=== PATIENT | female | born 1985 ===

== ENCOUNTER 2016-10-23 17:57 | Emergency (ER) | payer BC, OTHER ==
[2016-10-23 18:30] VITALS: BMI 29.2
[2016-10-23 18:35] VITALS: RESP 18; TEMP 98
[2016-10-23 19:38] LABS: RBC URINE 1 /hpf (0-3); URINE BACTERIA RARE (<OCC); URINE BILIRUBIN NEGATIVE (NEGATIVE); URINE BLOOD NEGATIVE (NEGATIVE); URINE COLOR Yellow (YELLOW); URINE GLUCOSE (UA) NORMAL (Normal); URINE KETONE NEGATIVE (NEGATIVE); URINE LEUKOCYTE ESTERASE NEG Leu/uL (Negative); URINE PROTEIN NEGATIVE (NEGATIVE); WBC URINE 2 /hpf (0-5)
--- NOTE | 2016-10-23 20:10 | C.PDOC ---
History Of Present Illness 31 yo female come in for evaluation of Left pelvic pain gradually developed for past 3 days after IUD placed by PERSONAL CAREGIVER. Pt reports, pain is localized with intermittent radiation to Left hip area. Pt sts, " I never had this pain before , developed after IUD was placed". pt request IUD to be removed. Otherwise, pt denies fever, chills, abd. pain, N/V/D, back pain, UTI sx, vaginal discharge. Ambulate to ED for evaluation, not in any apparent distress. Time Seen by Provider: 10/23/16 18:46 Chief Complaint (Nursing): Female Genitourinary History Per: Patient History/Exam Limitations: no limitations Onset/Duration Of Symptoms: Days (3) Current Symptoms Are (Timing): Still Present Past Medical History Reviewed: Historical Data, Nursing Documentation, Vital Signs Vital Signs: Last Vital Signs Temp 98.0 F 10/23/16 18:29 Pulse 75 10/23/16 20:23 Resp 18 10/23/16 20:23 BP 110/68 10/23/16 20:23 Pulse Ox 99 10/23/16 20:26 - Medical History PMH: Anemia, Asthma - [facility] Procedures DELIVERY OF PRODUCTS OF CONCEPTION, EXTERNAL APPROACH (07/08/15) INTRODUCTION OF SERUM/TOX/VACCINE INTO MUSCLE, PERC APPROACH (07/08/15) MONITORING OF POC, CARDIAC RATE, HARDNESS INSPECTOR APPROACH (07/08/15) Family History: States: No Known Family Hx - Social History Hx Tobacco Use: No Hx Alcohol Use: Yes Hx Substance Use: No - Immunization History Hx Tetanus Toxoid Vaccination: No Hx Influenza Vaccination: No Hx Pneumococcal Vaccination: No Review Of Systems Except As Marked, All Systems Reviewed And Found Negative. Constitutional: Negative for: Fever, Chills Gastrointestinal: Negative for: Nausea, Vomiting, Abdominal Pain, Diarrhea Genitourinary: Positive for: Pelvic Pain (Left pelvic pain ). Negative for: Vaginal Discharge Musculoskeletal: Negative for: Back Pain Physical Exam - Physical Exam Appears: Well, Non-toxic, No Acute Distress Skin: Warm, No Rash Throat: Normal Neck: Normal, Normal ROM, Supple Gastrointestinal/Abdominal: Normal Exam, Soft, No Tenderness, No Distention, No Guarding Back: Normal Inspection, No CVA Tenderness Pelvic: No Vaginal Bleeding, Vaginal Discharge (copious yellow discharge with (+ ) fishy odor), No Cervical Motion Tenderness, Other ((+)strings from IUD noted) Extremity: Normal ROM, No Pedal Edema Neurological/Psych: Oriented x3, Normal Speech ED Course And Treatment O2 Sat by Pulse Oximetry: 99 Pulse Ox Interpretation: Normal Progress Note: On re-evaluation, pt is afebrile, hemodynamicaly stable. NOn- toxic. Tolerate Po well in ED. ENT: no acute findings. ABd: benign, (-) guarding, (-) rebound, (-) localized tenderness. Pelvic: exam c/w vaginitis. UA results review and appears normal. OB-PERSONAL CAREGIVER nuclear weapons specialist called and evaluated pt, IUD removed. Parent advised on course of ds. ref. to F/U with PERSONAL CAREGIVER in 2-3 days for re-eavl. return if any new changes. Medical Decision Making Medical Decision Making: PLAN: * HCG Urine * Urinalysis Disposition Counseled Patient/Family Regarding: Studies Performed, Diagnosis, Need For Followup, Rx Given - [facility]position [facility] Disposition: HOME/ ROUTINE Disposition Time: 20:07 Condition: GOOD Additional Instructions: Follow up with PERSONAL CAREGIVER in 2-3 days for re-evaluation. Return to Ed if any worsening or new changes. Prescriptions: metroNIDAZOLE 0.75% [Metrogel Cream] 1 applic VAG HS #1 tube Ibuprofen [Motrin] 600 mg PO Q6 #20 tab Instructions: Pelvic Pain in Women (ED), Vaginitis (ED) Forms: Work/School/Gym Excuse - Clinical Impression Clinical Impression: Pelvic pain, Encounter for IUD removal, Vaginitis - PA / TECHNICAL PROGRAM MANAGER / Resident Statement MD/DO has reviewed & agrees with the documentation as recorded. - Scribe Statement The provider has reviewed the documentation as recorded by the Scribe Ivy Lam All medical record entries made by the Kristineibchristie were at my direction and personally dictated by me. I have reviewed the chart and agree that the record accurately reflects my personal performance of the history, physical exam, medical decision making, and the department course for this patient. I have also personally directed, reviewed, and agree with the discharge instructions and disposition.
--- NOTE | 2016-10-23 20:11 | CP.PCM.CON ---
History of Present Illness - History of Present Illness History of Present Illness: 31 yr came here with c/o left sideed pain starteed 3 days ago after iud was placed. pt req to be out, no vb,no other com. obhx 4 x pmh denies med pnv all nkda psh denies soch deies ssse therad visuaised afer informed cosent sterile speculum inserted. thread visualised. iud removed with ring forcep. showed to pateint Review of Systems - Gastrointestinal Gastrointestinal: Abdominal Pain Past Patient History - Infectious Disease Hx of Infectious Diseases: None - Past Social History Smoking Status: Never Smoked - PULMONARY Hx Asthma: Yes - HEMATOLOGICAL/ONCOLOGICAL Hx Anemia: Yes - PSYCHIATRIC Hx Substance Use: No - SURGICAL HISTORY Hx Surgeries: No - ANESTHESIA Hx Anesthesia: No Meds Allergies/Adverse Reactions: Allergies Allergy/AdvReac Type Severity Reaction Status Date / Time No Known Allergies Allergy Verified 10/23/16 18:28 Physical Exam - Exam External exam: NORMAL EXTERNAL EXAM Speculum exam: NORMAL SPECULUM EXAM (thread visualised) Results - Vital Signs Recent Vital Signs: Last Vital Signs Temp 98.0 F 10/23/16 18:29 Pulse 72 10/23/16 18:29 Resp 18 10/23/16 18:29 BP 111/73 10/23/16 18:29 Pulse Ox 99 10/23/16 18:29 - Labs Labs: Laboratory Results - last 24 hr 10/23/16 19:23 Urine Color Yellow Urine Clarity Hazy Urine pH 7.0 Ur Specific Rupert 1.021 Urine Protein Negative Urine Glucose (UA) Normal Urine Ketones Negative Urine Blood Negative Urine Nitrate Negative Urine Bilirubin Negative Urine Urobilinogen 2.0 H Ur Leukocyte Esterase Neg Urine WBC (Auto) 2 Urine RBC (Auto) 1 Ur Squamous Epith Cells 2 Urine Bacteria Rare Urine HCG, Qual Negative Assessment & Plan - Assessment and Plan (Free Text) Assessment: 31 yr with pelvic pain after iud Plan: plan iud removed. david mcgeen f/u in clinic for depo shot pt underatsnd and agrees - Date & Time Date: 10/23/16 Time: 18:30
[2016-10-23 20:24] VITALS: BP 110/68; PULSE 75
[2016-10-23 20:26] VITALS: O2SAT 99
== END 2016-10-23 20:25 | disposition home or self-care (01) ==
LOC: C.ER 17:57
DX: Z30.432 Encounter for removal of intrauterine contraceptive device (principal); N76.0 Acute vaginitis

== ENCOUNTER 2016-12-09 09:11 | Emergency (ER) | payer BC, OTHER ==
[2016-12-09 09:22] VITALS: BMI 28.8
[2016-12-09 09:24] VITALS: TEMP 98.2
--- NOTE | 2016-12-09 09:41 | C.PDOC ---
History Of Present Illness A 31 year old female presents to the emergency room with complaints of right ankle pain s/p a mechanical fall prior to arrival. Patient reports that she tripped down the stairs at home and twisted her right ankle. Patient came directly to the ER. Patient notes that she was unable to bear any weight on it. Patient denies any head trauma/LOC, sensory changes, numbness, weakness, or any other complaints. Time Seen by Provider: 12/09/16 09:31 Chief Complaint (Nursing): Lower Extremity Problem/Injury History Per: Patient History/Exam Limitations: no limitations Onset/Duration Of Symptoms: Hrs Current Symptoms Are (Timing): Still Present Severity: Mild Recent travel outside of the [place]: No - Ankle/Foot Description Of Injury: Fell, Twisted Currently Unable To: Bear Weight Past Medical History Reviewed: Historical Data, Nursing Documentation, Vital Signs Vital Signs: Last Vital Signs Temp 98.2 F 12/09/16 09:22 Pulse 84 12/09/16 09:22 Resp 16 12/09/16 09:22 BP 114/77 12/09/16 09:22 Pulse Ox 100 12/09/16 10:46 - Medical History PMH: Anemia, Asthma - [facility] Procedures DELIVERY OF PRODUCTS OF CONCEPTION, EXTERNAL APPROACH (07/08/15) INTRODUCTION OF SERUM/TOX/VACCINE INTO MUSCLE, PERC APPROACH (07/08/15) MONITORING OF POC, CARDIAC RATE, CHANGE MANAGEMENT CONSULTANT APPROACH (07/08/15) Family History: States: Unknown Family Hx - Social History Hx Tobacco Use: No Hx Alcohol Use: Yes Hx Substance Use: No - Immunization History Hx Tetanus Toxoid Vaccination: Yes Hx Influenza Vaccination: No Hx Pneumococcal Vaccination: No Review Of Systems Except As Marked, All Systems Reviewed And Found Negative. Constitutional: Negative for: Fever, Chills Gastrointestinal: Negative for: Nausea, Vomiting, Diarrhea Musculoskeletal: Positive for: Other (Right ankle pain) Neurological: Negative for: Weakness, Numbness Physical Exam - Physical Exam Appears: Well, Non-toxic Skin: Normal Color, Warm, Dry, No Rash Head: Atraumatic, Normacephalic Extremity: Normal ROM (Pain with full ROM), Tenderness (Tendernes to anterior right ankle), No Pedal Edema, No Calf Tenderness, Capillary Refill (less than 2 sec), No Deformity, No Swelling, Other (DP pulses normal. Normal strength. Normal sensation. ) Extremity: Bilateral: Normal Color And Temperature, Normal ROM Pulses: Left Dorsalis Pedis: Normal, Right Dorsalis Pedis: Normal Neurological/Psych: Oriented x3, Normal Speech, Normal Cognition, Normal Motor, Normal Sensation ED Course And Treatment O2 Sat by Pulse Oximetry: 100 - Other Rad Right Ankle X-ray X-Ray: Viewed By Me, Read By Radiologist Interpretation: PROCEDURE: Right Ankle Radiographs. HISTORY: . COMPARISON: None. FINDINGS: BONES: Normal. No fracture. JOINTS: Normal. No osteoarthritis. Ankle mortise maintained. Talar dome intact. SOFT TISSUES: Normal. OTHER FINDINGS: None. IMPRESSION: Normal right ankle radiographs. Medical Decision Making Medical Decision Making: JOÃO wrap crutches NSAID f/u w pcp in 1 week, repeat xray if pain persists Disposition - Disposition Disposition: HOME/ ROUTINE Disposition Time: 10:45 Condition: STABLE Additional Instructions: Please follow up with your doctor in 1 week for a re-check. If your are still having pain you may need a repeat xray. Do not bear weight on your right leg for 2 days, then attempt to bear weight as tolerated. Return to the ER for any worsening symptoms or for any other concerns. Prescriptions: Naproxen [Naprosyn] 500 mg PO Q12H PRN #10 tablet PRN Reason: Pain, Moderate (4-7) Instructions: Ankle Sprain (ED) Forms: General Discharge Instructions, Work Excuse - Clinical Impression Clinical Impression: Ankle sprain - Scribe Statement The provider has reviewed the documentation as recorded by the Kristineibchirstie Petersen All medical record entries made by the Kristineibchristie were at my direction and personally dictated by me. I have reviewed the chart and agree that the record accurately reflects my personal performance of the history, physical exam, medical decision making, and the department course for this patient. I have also personally directed, reviewed, and agree with the discharge instructions and disposition.
--- NOTE | 2016-12-09 10:38 | RAD ---
PROCEDURE: Right Ankle Radiographs. HISTORY: COMPARISON: None FINDINGS: BONES: Normal. No fracture. JOINTS: Normal. No osteoarthritis. Ankle mortise maintained. Talar dome intact SOFT TISSUES: Normal. OTHER FINDINGS: None. IMPRESSION: Normal right ankle radiographs.
[2016-12-09 11:12] VITALS: BP 119/65; PULSE 72; RESP 18; O2SAT 98
== END 2016-12-09 11:15 | disposition home or self-care (01) ==
LOC: C.ER 09:11
DX: S93.401A Sprain of unspecified ligament of right ankle, initial encounter (principal); W10.8XXA Fall (on) (from) other stairs and steps, initial encounter; Y92.008 Other place in unspecified non-institutional (private) residence as the place of occurrence of the external cause
CPT/HCPCS: 73610; 97116; 97161; 99285; G8978; G8979; G8980

== ENCOUNTER 2017-04-12 21:14 | Emergency (ER) | payer BC, OTHER ==
[2017-04-12 21:14] VITALS: BMI 28.8
[2017-04-12 21:33] VITALS: RESP 20; O2SAT 98
--- NOTE | 2017-04-12 21:55 | C.PDOC ---
History Of Present Illness 32 year old female who presents to the ER with a complaint pain, swelling, and redness to the left lower leg after being bitten by an insect 3 days ago. Patient report she has not taken anything for the pain; denies fever or drainage. Time Seen by Provider: 04/12/17 21:39 Chief Complaint (Nursing): Lower Extremity Problem/Injury History Per: Patient History/Exam Limitations: no limitations Onset/Duration Of Symptoms: Days Current Symptoms Are (Timing): Still Present Location Of Injury: Left: Leg Quality Of Symptoms: Painful, Swollen, Other (Redness). denies: Draining Recent travel outside of the [place]: No Past Medical History Reviewed: Historical Data, Nursing Documentation, Vital Signs Vital Signs: Last Vital Signs Temp 98.7 F 04/12/17 21:53 Pulse 88 04/12/17 21:53 Resp 20 04/12/17 21:53 BP 118/73 04/12/17 21:53 Pulse Ox 98 04/13/17 00:25 - Medical History PMH: Anemia, Asthma Surgical History: No Surg Hx - [facility] Procedures DELIVERY OF PRODUCTS OF CONCEPTION, EXTERNAL APPROACH (07/08/15) INTRODUCTION OF SERUM/TOX/VACCINE INTO MUSCLE, PERC APPROACH (07/08/15) MONITORING OF POC, CARDIAC RATE, MIXER FOAM RUBBER APPROACH (07/08/15) Family History: States: Unknown Family Hx - Social History Hx Tobacco Use: No Hx Alcohol Use: Yes Hx Substance Use: No - Immunization History Hx Tetanus Toxoid Vaccination: Yes Hx Influenza Vaccination: No Hx Pneumococcal Vaccination: No Review Of Systems Constitutional: Negative for: Fever Skin: Positive for: Other (Insect bite) Neurological: Negative for: Weakness, Numbness Physical Exam - Physical Exam Appears: Non-toxic, No Acute Distress Skin: Warm, Dry Head: Atraumatic, Normacephalic Oral Mucosa: Moist Extremity: Normal ROM (x4), Other (3x4cm area of localized erythema to left lower extremity proximal to ankle with pimple like ulcer at center. Nondraining , nonfluctuant, no streaking.) Pulses: Left Dorsalis Pedis: Normal, Right Dorsalis Pedis: Normal Neurological/Psych: Oriented x3, Normal Speech, Normal Cognition ED Course And Treatment O2 Sat by Pulse Oximetry: 98 (Room air) Pulse Ox Interpretation: Normal Progress Note: Patient is resting comfortably and is in no acute distress. Will discharge home with instructions on proper wound care. Wound margins were marked and pt were given return and follow up precautions. Disposition Counseled Patient/Family Regarding: Diagnosis, Need For Followup, Rx Given - Disposition Disposition: HOME/ ROUTINE Disposition Time: 21:52 Condition: STABLE Additional Instructions: Apply warm compress Wash area with warm soapy water tylenol or advil if pain Apply bacitracin or neosporin oint Elevate leg Return to ER if worse Prescriptions: Cephalexin [cephalexin] 500 mg PO Q6 #28 cap Instructions: Cephalexin (By mouth), Insect Bite or Sting (ED) Forms: [employer] (Maori) - Clinical Impression Clinical Impression: Infected insect bite of left leg - Scribe Statement The provider has reviewed the documentation as recorded by the Scribchristie Suarez All medical record entries made by the Kristineibchristie were at my direction and personally dictated by me. I have reviewed the chart and agree that the record accurately reflects my personal performance of the history, physical exam, medical decision making, and the department course for this patient. I have also personally directed, reviewed, and agree with the discharge instructions and disposition.
[2017-04-12 22:08] VITALS: BP 118/73; PULSE 88; TEMP 98.7
== END 2017-04-12 22:08 | disposition home or self-care (01) ==
LOC: C.ER 21:14
DX: S80.862A Insect bite (nonvenomous), left lower leg, initial encounter (principal); W57.XXXA Bitten or stung by nonvenomous insect and other nonvenomous arthropods, initial encounter; Y93.9 Activity, unspecified; Y92.9 Unspecified place or not applicable